=== PATIENT | female | born 1945 | race Caucasian/White ===

== ENCOUNTER 2017-04-12 18:56 | Inpatient (IN) | payer OTHER, MEDICAID ==
[~2017-04-12] VITALS: Ht 142.2 cm; Wt 46.7 kg
[2017-04-12 21:29] LABS: PLATELET COUNT 217 x10^3mcL (130-400)
[2017-04-12 21:40] LABS: CALCIUM 8.4 mg/dL (8.5-10.1); CARBON DIOXIDE 25.1 mmol/L (21-32); CHLORIDE SERUM 105 mmol/L (98-107); CREATININE SERUM 1.4 mg/dL (0.6-1.0); GLUCOSE SERUM 150 mg/dL (74-106); SODIUM SERUM 139 mmol/L (136-145)
[2017-04-12 21:41] LABS: RED CELL DISTRIBUTION WIDTH 19.3 % (11.5-14.5)
[2017-04-12 21:52] LABS: ALKALINE PHOSPHATASE 78 U/L (46-116); ALT/SGPT 19 U/L (14-59); AST/SGOT 17 U/L (15-37); BILIRUBIN TOTAL 0.5 mg/dL (0.20-1.00); TOTAL PROTEIN, SERUM 7.3 g/dL (6.4-8.2)
[2017-04-12 21:56] LABS: ALBUMIN 2.3 g/dL (3.4-5.0)
[2017-04-12 22:05] LABS: CK-MB < 0.5 ng/mL (0-3.6); CREATINE KINASE 17 U/L (26-192)
[2017-04-12 22:12] LABS: rbc morphology (normal/abnorm) ABNORMAL (NORMAL)
[2017-04-12 22:15] LABS: BAND NEUTROPHIL 0 % (0-10); BASOPHIL 0 % (0-2); MONOCYTE 5 % (0-7); PLATELET MORPHOLOGY PLATELETS NORMAL; SEGMENTED NEUTROPHILS 91 % (37-75)
[2017-04-12] MEDS ORDERED: CELEBREX200 MG PO (22:55)
[2017-04-12] MEDS ORDERED: LIPI10 PO (22:55)
[2017-04-12] MEDS ORDERED: ARICEPT5 MG PO (22:56)
[2017-04-12] MEDS ORDERED: ESCITALOPRAM10 M1 PO (22:56)
[2017-04-12] MEDS ORDERED: ESTRACE1 MG PO (22:58)
[2017-04-12] MEDS ORDERED: SYNTHROID0.112 MG PO (22:58)
[2017-04-12] MEDS ORDERED: MEDROXYPROGEST2.5 MG PO (22:59)
[2017-04-12] MEDS ORDERED: METAMUCIL POWD538 GM PO (23:00)
[2017-04-12] MEDS ORDERED: GOOD SENSE OMEP20 MG PO (23:00)
[2017-04-12] MEDS ORDERED: OYSCO 500-VIT1 EACH PO (23:01)
[2017-04-12] MEDS ORDERED: NEUTROGENA T TP (23:01)
[2017-04-12] MEDS ORDERED: [UNRECOGNIZED DRUG - OTHER] TP (23:01)
[2017-04-12] MEDS ORDERED: THERA M PLUS T1 EACH PO (23:02)
[2017-04-12] MEDS ORDERED: INTRINSI B12-F1 EACH PO (23:03)
[2017-04-12] MEDS ORDERED: COUGH DM30 MG/5 ML PO (23:04)
[2017-04-12] MEDS ORDERED: MEGL PO (23:05)
[2017-04-12] MEDS ORDERED: MUCINEX600 MG PO (23:05)
[2017-04-12] MEDS ORDERED: APAP500 MG PO (23:06)
[2017-04-12] MEDS ORDERED: MOM PO (23:08)
[2017-04-12] MEDS ORDERED: SUNSCREEN SPF8120 ML TP (23:08)
[2017-04-12] MEDS ORDERED: EUCERIN CALM I200 ML TP (23:09)
[2017-04-12] MEDS ORDERED: [UNRECOGNIZED DRUG - OTHER] (23:09)
[2017-04-12 23:10] LABS: UA SPECIFIC GRAVITY >=1.030 (1.005-1.035); microscopic required? YES; urine erythrocyte 1+ (NEGATIVE)
[2017-04-12] MEDS ORDERED: MAXITROL1 OIN OD (23:10)
[2017-04-12] MEDS ORDERED: OCUSOFT LID SC1 EACH TP (23:11)
[2017-04-13] VITALS (12 sets, daily range): BP systolic 80–123; BP diastolic 42–85; Ht 142.2 cm; Wt 46.7 kg
[2017-04-13 00:54] LABS: T3 TOTAL 0.33 ng/mL
[2017-04-13 01:05] LABS: CHOLESTEROL/HDL RATIO 2.4
[2017-04-13 01:11] LABS: FREE T4 1.23 ng/dL (0.76-1.46); FREE THYROXINE INDEX 2.3 ug/dL (1.4-4.5); T4(THYROXINE) 5.6 ug/dL (4.7-13.3)
[2017-04-13 06:26] LABS: PLATELET COUNT 187 x10^3mcL (130-400)
[2017-04-13 06:33] LABS: CALCIUM 7.4 mg/dL (8.5-10.1); CHLORIDE SERUM 112 mmol/L (98-107); CREATININE SERUM 1.2 mg/dL (0.6-1.0); GLUCOSE SERUM 100 mg/dL (74-106); MAGNESIUM 1.8 mg/dL (1.8-2.4); PHOSPHOROUS 3.1 mg/dL (2.5-4.9); POTASSIUM SERUM 4.6 mmol/L (3.5-5.1); SODIUM SERUM 145 mmol/L (136-145)
[2017-04-13 07:11] LABS: RED CELL DISTRIBUTION WIDTH 19.3 % (11.5-14.5)
[2017-04-13 11:42] LABS: ATYPICAL LYMPH 1 %; BAND NEUTROPHIL 26 % (0-10); BASOPHIL 0 % (0-2); MONOCYTE 3 % (0-7); SEGMENTED NEUTROPHILS 65 % (37-75)
[2017-04-13 11:45] LABS: PLATELET MORPHOLOGY LARGE PLATELET SEEN; rbc morphology (normal/abnorm) ABNORMAL (NORMAL)
[2017-04-14 05:42] VITALS: BP 96/66
[2017-04-14 06:16] LABS: BASOPHIL % 0.3 % (0-2); PLATELET COUNT 201 x10^3mcL (130-400)
[2017-04-14 06:31] LABS: CALCIUM 8.3 mg/dL (8.5-10.1); CARBON DIOXIDE 27.8 mmol/L (21-32); CHLORIDE SERUM 111 mmol/L (98-107); GLUCOSE SERUM 76 mg/dL (74-106); PHOSPHOROUS 2.8 mg/dL (2.5-4.9); POTASSIUM SERUM 4.2 mmol/L (3.5-5.1); SODIUM SERUM 145 mmol/L (136-145)
[2017-04-14 06:58] LABS: RED CELL DISTRIBUTION WIDTH 19.6 % (11.5-14.5)
[2017-04-14 10:22] VITALS: BP 105/72
[2017-04-14 14:00] VITALS: BP 111/62
[2017-04-14 17:57] VITALS: BP 116/54
[2017-04-14 22:48] VITALS: BP 104/61
[2017-04-15 05:46] VITALS: BP 108/65
[2017-04-15 05:58] LABS: BASOPHIL % 0.4 % (0-2); PLATELET COUNT 216 x10^3mcL (130-400)
[2017-04-15 06:17] LABS: CALCIUM 8.3 mg/dL (8.5-10.1); CARBON DIOXIDE 27.3 mmol/L (21-32); CHLORIDE SERUM 107 mmol/L (98-107); CREATININE SERUM 1.2 mg/dL (0.6-1.0); GLUCOSE SERUM 78 mg/dL (74-106); PHOSPHOROUS 3.7 mg/dL (2.5-4.9); POTASSIUM SERUM 4.6 mmol/L (3.5-5.1); SODIUM SERUM 142 mmol/L (136-145)
[2017-04-15 07:22] LABS: RED CELL DISTRIBUTION WIDTH 18.9 % (11.5-14.5)
[2017-04-15 08:54] VITALS: BP 119/56
[2017-04-15 13:42] VITALS: BP 119/63
[2017-04-15 18:00] VITALS: BP 109/56
[2017-04-15 20:19] VITALS: BP 110/72
[2017-04-16 04:22] VITALS: BP 107/52
[2017-04-16 06:17] LABS: CALCIUM 8.8 mg/dL (8.5-10.1); CARBON DIOXIDE 32.9 mmol/L (21-32); CHLORIDE SERUM 102 mmol/L (98-107); CREATININE SERUM 1.5 mg/dL (0.6-1.0); GLUCOSE SERUM 81 mg/dL (74-106); MAGNESIUM 2.2 mg/dL (1.8-2.4); PHOSPHOROUS 4.2 mg/dL (2.5-4.9); POTASSIUM SERUM 5.2 mmol/L (3.5-5.1); SODIUM SERUM 142 mmol/L (136-145)
[2017-04-16 06:52] LABS: BASOPHIL % 0.3 % (0-2); PLATELET COUNT 266 x10^3mcL (130-400); RED CELL DISTRIBUTION WIDTH 18.6 % (11.5-14.5)
[2017-04-16 09:07] VITALS: BP 106/77
[2017-04-17 05:17] VITALS: BP 139/97
[2017-04-17 06:02] LABS: PLATELET COUNT 272 x10^3mcL (130-400)
[2017-04-17 06:18] LABS: CALCIUM 8.7 mg/dL (8.5-10.1); CARBON DIOXIDE 27.2 mmol/L (21-32); CHLORIDE SERUM 106 mmol/L (98-107); CREATININE SERUM 1.4 mg/dL (0.6-1.0); GLUCOSE SERUM 131 mg/dL (74-106); MAGNESIUM 2.3 mg/dL (1.8-2.4); PHOSPHOROUS 4.1 mg/dL (2.5-4.9); SODIUM SERUM 141 mmol/L (136-145)
[2017-04-17 06:20] LABS: POTASSIUM SERUM 5.7 mmol/L (3.5-5.1)
[2017-04-17 06:52] LABS: BASOPHIL % 0 % (0-2); RED CELL DISTRIBUTION WIDTH 19.4 % (11.5-14.5)
[2017-04-17 08:00] VITALS: BP 131/86
[2017-04-17 09:08] VITALS: BP 119/66
[2017-04-17] MEDS ORDERED: IPRATROPIUM BROM3 M2 HHN (11:21)
[2017-04-17] MEDS ORDERED: LEVAQUIN750 MG PO (11:33)
[2017-04-17] MEDS ORDERED: LAC PO (11:34)
[2017-04-17] MEDS ORDERED: CLEOCIN HCL300 MG PO (11:34)
[2017-04-17 11:51] VITALS: BP 131/86
[2017-04-17 13:45] LABS: CALCIUM 8.6 mg/dL (8.5-10.1); CARBON DIOXIDE 24.8 mmol/L (21-32); CHLORIDE SERUM 107 mmol/L (98-107); CREATININE SERUM 1.4 mg/dL (0.6-1.0); GLUCOSE SERUM 195 mg/dL (74-106); POTASSIUM SERUM 4.2 mmol/L (3.5-5.1); SODIUM SERUM 142 mmol/L (136-145)
[2017-04-17 14:09] VITALS: BP 138/78
== END 2017-04-17 14:20 | DRG 177 ==
LOC: ED 18:56 → DU 22:37
PROVIDERS: Emergency Medicine; Family Medicine; ADMIT Family Medicine
DX: J69.0 Pneumonitis due to inhalation of food and vomit (principal); J96.01 Acute respiratory failure with hypoxia; E43 Unspecified severe protein-calorie malnutrition; N17.0 Acute kidney failure with tubular necrosis; F72 Severe intellectual disabilities; N39.0 Urinary tract infection, site not specified; R31.9 Hematuria, unspecified; K21.9 Gastro-esophageal reflux disease without esophagitis; M19.90 Unspecified osteoarthritis, unspecified site; J30.9 Allergic rhinitis, unspecified; E78.00 Pure hypercholesterolemia, unspecified; E03.9 Hypothyroidism, unspecified; F34.1 Dysthymic disorder; F41.8 Other specified anxiety disorders; Q90.9 Down syndrome, unspecified; G30.9 Alzheimer's disease, unspecified; F02.80 Dementia in other diseases classified elsewhere, unspecified severity, without behavioral disturbance, psychotic disturbance, mood disturbance, and anxiety; Z68.23 Body mass index [BMI] 23.0-23.9, adult
CPT/HCPCS: 36600; 83880; 84439; J1644; J1940; J2060; J2270; J2543; J2920; J7030; J7040; J7620; J7626; Q0092

== ENCOUNTER 2017-11-16 08:39 | Inpatient (IN) | payer OTHER, MEDICAID ==
[~2017-11-16] VITALS: Ht 142.2 cm; Wt 60.3 kg
[~2017-11-16 08:39] MED LIST: APAP500 MG PO; ARICEPT5 MG PO; CELEBREX200 MG PO; CLEOCIN HCL300 MG PO; COUGH DM30 MG/5 ML PO; ESCITALOPRAM10 M1 PO; ESTRACE1 MG PO; EUCERIN CALM I200 ML TP; GOOD SENSE OMEP20 MG PO; INTRINSI B12-F1 EACH PO; IPRATROPIUM BROM3 M2 HHN; LAC PO; LEVAQUIN750 MG PO; LIPI10 PO; MAXITROL1 OIN OD; MEDROXYPROGEST2.5 MG PO; MEGL PO; METAMUCIL POWD538 GM PO; MOM PO; MUCINEX600 MG PO; NEUTROGENA T TP; OCUSOFT LID SC1 EACH TP; OYSCO 500-VIT1 EACH PO; SUNSCREEN SPF8120 ML TP; SYNTHROID0.112 MG PO; THERA M PLUS T1 EACH PO; [UNRECOGNIZED DRUG - OTHER]; [UNRECOGNIZED DRUG - OTHER] TP
[2017-11-16 10:16] LABS: CALCIUM 8.4 mg/dL (8.5-10.1); CARBON DIOXIDE 30.1 mmol/L (21-32); CHLORIDE SERUM 103 mmol/L (98-107); CREATININE SERUM 1.2 mg/dL (0.6-1.0); GLUCOSE SERUM 110 mg/dL (74-106); POTASSIUM SERUM 4.3 mmol/L (3.5-5.1); SODIUM SERUM 141 mmol/L (136-145)
[2017-11-16 10:17] LABS: BASOPHIL % 0.2 % (0-2); PLATELET COUNT 225 x10^3mcL (130-400)
[2017-11-16] MEDS ORDERED: ARICEPT10 MG PO (10:20)
[2017-11-16 10:21] LABS: ALKALINE PHOSPHATASE 93 U/L (46-116); ALT/SGPT 31 U/L (14-59); AST/SGOT 40 U/L (15-37); BILIRUBIN TOTAL 0.2 mg/dL (0.20-1.00); TOTAL PROTEIN, SERUM 7.6 g/dL (6.4-8.2)
[2017-11-16] MEDS ORDERED: LEVOTHYROXINE0.1 M2 PO (10:22)
[2017-11-16 10:23] LABS: ALBUMIN 2.8 g/dL (3.4-5.0)
[2017-11-16] MEDS ORDERED: METAMUCIL660 GM PO (10:26)
[2017-11-16 10:28] LABS: RED CELL DISTRIBUTION WIDTH 15.1 % (11.5-14.5)
[2017-11-16] MEDS ORDERED: REM15 PO (10:43)
[2017-11-16 10:44] LABS: CHOLESTEROL/HDL RATIO 3.2; PHOSPHOROUS 3.7 mg/dL (2.5-4.9)
[2017-11-16] MEDS ORDERED: NEUTROGENA T TOP (10:46)
[2017-11-16] MEDS ORDERED: [UNRECOGNIZED DRUG - OTHER] TOP (10:46)
[2017-11-16] MEDS ORDERED: VITAMIN B121000 MCG PO (10:47)
[2017-11-16] MEDS ORDERED: IPRATROPIUM BROM3 M2 INH (10:49)
[2017-11-16 10:52] LABS: T3 TOTAL 0.65 ng/mL
[2017-11-16 11:04] LABS: FREE T4 1.4 ng/dL (0.76-1.46); FREE THYROXINE INDEX 3.2 ug/dL (1.4-4.5); T4(THYROXINE) 7.7 ug/dL (4.7-13.3)
[2017-11-16 12:16] VITALS: BP 128/70
[2017-11-16 12:34] VITALS: BP 131/73
[2017-11-16 16:36] VITALS: BP 147/57
[2017-11-16 21:43] VITALS: BP 115/76
[2017-11-17 06:06] VITALS: BP 110/56
[2017-11-17 06:23] LABS: CALCIUM 8.4 mg/dL (8.5-10.1); CARBON DIOXIDE 28.3 mmol/L (21-32); CHLORIDE SERUM 105 mmol/L (98-107); CREATININE SERUM 1.1 mg/dL (0.6-1.0); GLUCOSE SERUM 150 mg/dL (74-106); POTASSIUM SERUM 4.7 mmol/L (3.5-5.1); SODIUM SERUM 141 mmol/L (136-145)
[2017-11-17 06:38] LABS: PLATELET COUNT 216 x10^3mcL (130-400)
[2017-11-17 06:49] LABS: RED CELL DISTRIBUTION WIDTH 15.1 % (11.5-14.5)
[2017-11-17 09:30] VITALS: BP 126/87
[2017-11-17 11:52] LABS: BASOPHIL 0 % (0-2); MONOCYTE 4 % (0-7)
[2017-11-17 11:53] LABS: BAND NEUTROPHIL 20 % (0-10); SEGMENTED NEUTROPHILS 69 % (37-75)
[2017-11-17 11:55] LABS: PLATELET MORPHOLOGY PLATELETS NORMAL
[2017-11-17 11:56] LABS: rbc morphology (normal/abnorm) ABNORMAL (NORMAL)
[2017-11-17 11:57] LABS: target cell (codocyte) 1+
[2017-11-17 14:30] VITALS: BP 124/76; BP 126/87
[2017-11-17 17:45] VITALS: BP 130/81
[2017-11-17 17:48] VITALS: BP 116/48
[2017-11-17 21:37] VITALS: BP 133/89
[2017-11-18 06:12] VITALS: BP 136/79
[2017-11-18 06:47] LABS: PLATELET COUNT 224 x10^3mcL (130-400)
[2017-11-18 07:05] LABS: CALCIUM 8.5 mg/dL (8.5-10.1); CARBON DIOXIDE 34.7 mmol/L (21-32); CHLORIDE SERUM 106 mmol/L (98-107); CREATININE SERUM 1.4 mg/dL (0.6-1.0); GLUCOSE SERUM 132 mg/dL (74-106); MAGNESIUM 2.2 mg/dL (1.8-2.4); PHOSPHOROUS 4.5 mg/dL (2.5-4.9); POTASSIUM SERUM 4.7 mmol/L (3.5-5.1); SODIUM SERUM 147 mmol/L (136-145)
[2017-11-18 07:30] LABS: RED CELL DISTRIBUTION WIDTH 15.5 % (11.5-14.5)
[2017-11-18 10:30] VITALS: BP 135/65
[2017-11-18 11:12] LABS: BAND NEUTROPHIL 21 % (0-10); BASOPHIL 0 % (0-2); MONOCYTE 3 % (0-7); SEGMENTED NEUTROPHILS 71 % (37-75)
[2017-11-18 11:14] LABS: rbc morphology (normal/abnorm) ABNORMAL (NORMAL); target cell (codocyte) 1+; tear drop cell (dacryocyte) 1+
[2017-11-18 13:30] VITALS: BP 135/78
[2017-11-18 17:00] VITALS: BP 114/66
[2017-11-18 21:24] VITALS: BP 131/97
[2017-11-18 22:04] VITALS: BP 130/78
[2017-11-19 05:15] VITALS: BP 128/75
[2017-11-19 09:28] VITALS: BP 123/83
[2017-11-19 09:40] LABS: BASOPHIL % 0.1 % (0-2); PLATELET COUNT 210 x10^3mcL (130-400)
[2017-11-19 09:41] LABS: RED CELL DISTRIBUTION WIDTH 15.4 % (11.5-14.5)
[2017-11-19 10:09] LABS: CALCIUM 8.7 mg/dL (8.5-10.1); CARBON DIOXIDE 34.9 mmol/L (21-32); CHLORIDE SERUM 103 mmol/L (98-107); CREATININE SERUM 1.2 mg/dL (0.6-1.0); GLUCOSE SERUM 146 mg/dL (74-106); MAGNESIUM 2.5 mg/dL (1.8-2.4); PHOSPHOROUS 3.2 mg/dL (2.5-4.9); POTASSIUM SERUM 4.2 mmol/L (3.5-5.1); SODIUM SERUM 144 mmol/L (136-145)
[2017-11-19 13:52] VITALS: BP 111/63
[2017-11-19 16:35] VITALS: BP 134/79
[2017-11-19 17:25] VITALS: BP 138/87
[2017-11-19 22:06] VITALS: BP 132/71
[2017-11-20 05:00] VITALS: BP 136/83
[2017-11-20 07:30] LABS: CALCIUM 8.5 mg/dL (8.5-10.1); CARBON DIOXIDE 34.4 mmol/L (21-32); CHLORIDE SERUM 105 mmol/L (98-107); CREATININE SERUM 0.9 mg/dL (0.6-1.0); GLUCOSE SERUM 155 mg/dL (74-106); MAGNESIUM 2.5 mg/dL (1.8-2.4); PHOSPHOROUS 3.1 mg/dL (2.5-4.9); POTASSIUM SERUM 4.7 mmol/L (3.5-5.1); SODIUM SERUM 145 mmol/L (136-145)
[2017-11-20 07:31] LABS: PLATELET COUNT 219 x10^3mcL (130-400)
[2017-11-20 07:50] LABS: RED CELL DISTRIBUTION WIDTH 15.2 % (11.5-14.5)
[2017-11-20 08:35] VITALS: BP 138/81
[2017-11-20 10:04] LABS: BAND NEUTROPHIL 15 % (0-10); BASOPHIL 0 % (0-2); MONOCYTE 4 % (0-7); SEGMENTED NEUTROPHILS 75 % (37-75)
[2017-11-20 10:05] LABS: rbc morphology (normal/abnorm) ABNORMAL (NORMAL); target cell (codocyte) 1+; tear drop cell (dacryocyte) 1+
[2017-11-20 11:31] VITALS: Ht 142.2 cm; Wt 60.3 kg
[2017-11-20 12:30] VITALS: BP 154/82
[2017-11-20 18:10] VITALS: BP 124/80
[2017-11-20 20:30] VITALS: BP 126/86
[2017-11-21 04:29] VITALS: BP 119/82
[2017-11-21 07:08] LABS: PLATELET COUNT 201 x10^3mcL (130-400)
[2017-11-21 07:20] LABS: BASOPHIL % 0 % (0-2); RED CELL DISTRIBUTION WIDTH 15.1 % (11.5-14.5)
[2017-11-21 07:22] LABS: rbc morphology (normal/abnorm) ABNORMAL (NORMAL); target cell (codocyte) 1+
[2017-11-21 07:23] LABS: tear drop cell (dacryocyte) 1+
[2017-11-21 07:55] LABS: CALCIUM 8.7 mg/dL (8.5-10.1); CARBON DIOXIDE 31.5 mmol/L (21-32); CHLORIDE SERUM 105 mmol/L (98-107); CREATININE SERUM 0.8 mg/dL (0.6-1.0); GLUCOSE SERUM 139 mg/dL (74-106); MAGNESIUM 2.6 mg/dL (1.8-2.4); PHOSPHOROUS 3.8 mg/dL (2.5-4.9); POTASSIUM SERUM 4.7 mmol/L (3.5-5.1); SODIUM SERUM 142 mmol/L (136-145)
[2017-11-21 09:59] VITALS: BP 155/107
[2017-11-21 13:55] VITALS: BP 139/84
[2017-11-21 14:00] VITALS: BP 139/84
== END 2017-11-21 16:12 | DRG 177 ==
LOC: ED 08:39 → DU 09:25
PROVIDERS: Emergency Medicine Emergency Medical Services; Family Medicine; Family Medicine Sports Medicine
DX: J69.0 Pneumonitis due to inhalation of food and vomit (principal); E43 Unspecified severe protein-calorie malnutrition; J96.00 Acute respiratory failure, unspecified whether with hypoxia or hypercapnia; J45.901 Unspecified asthma with (acute) exacerbation; F72 Severe intellectual disabilities; Q90.9 Down syndrome, unspecified; K21.9 Gastro-esophageal reflux disease without esophagitis; E03.9 Hypothyroidism, unspecified; M19.90 Unspecified osteoarthritis, unspecified site; R74.0 Nonspecific elevation of levels of transaminase and lactic acid dehydrogenase [LDH]; F03.90 Unspecified dementia, unspecified severity, without behavioral disturbance, psychotic disturbance, mood disturbance, and anxiety; Z68.28 Body mass index [BMI] 28.0-28.9, adult; Z66 Do not resuscitate
CPT/HCPCS: 36600; 83880; 84439; 87804; J0171; J1940; J1956; J2543; J2920; J2930; J3475; J3490; J7030; J7613; J7620; J7644; Q0092

== ENCOUNTER 2018-01-03 19:54 | Inpatient (IN) | payer OTHER ==
[~2018-01-03] VITALS: Ht 149.9 cm; Wt 63.0 kg
[~2018-01-03 19:54] MED LIST changes: +ARICEPT10 MG PO; +IPRATROPIUM BROM3 M2 INH; +LEVOTHYROXINE0.1 M2 PO; +METAMUCIL660 GM PO; +NEUTROGENA T TOP; +REM15 PO; +VITAMIN B121000 MCG PO; +[UNRECOGNIZED DRUG - OTHER] TOP
[2018-01-03 19:58] VITALS: Ht 149.9 cm; Wt 63.0 kg
[2018-01-03 21:44] VITALS: BP 76/37
[2018-01-03 21:50] LABS: BASOPHIL % 0 % (0-2); PLATELET COUNT 55 x10^3mcL (130-400); RED CELL DISTRIBUTION WIDTH 16.8 % (11.5-14.5)
[2018-01-03 21:52] LABS: CARBON DIOXIDE 10.5 mmol/L (21-32); CHLORIDE SERUM 123 mmol/L (98-107); CREATININE SERUM 1.3 mg/dL (0.6-1.0); GLUCOSE SERUM 82 mg/dL (74-106); POTASSIUM SERUM 3.2 mmol/L (3.5-5.1); SODIUM SERUM 149 mmol/L (136-145)
[2018-01-03 22:31] LABS: TOTAL PROTEIN, SERUM 4.5 g/dL (6.4-8.2)
[2018-01-03 22:32] LABS: ALBUMIN 1.6 g/dL (3.4-5.0); ALKALINE PHOSPHATASE 80 U/L (46-116); ALT/SGPT 56 U/L (14-59); AST/SGOT 104 U/L (15-37); BILIRUBIN TOTAL 0.2 mg/dL (0.20-1.00); CALCIUM 7.1 mg/dL (8.5-10.1)
[2018-01-03 22:44] LABS: microscopic required? YES; urine erythrocyte 3+ (NEGATIVE)
[2018-01-03 22:44] LABS: CHOLESTEROL 56 mg/dL (<200); HDL CHOLESTEROL 24 mg/dL (40-60)
[2018-01-03 23:54] VITALS: BP 75/50
[2018-01-04] VITALS (7 sets, daily range): BP systolic 76–115; BP diastolic 52–61
[2018-01-04 03:11] LABS: MAGNESIUM 1.8 mg/dL (1.8-2.4); PHOSPHOROUS 6.7 mg/dL (2.5-4.9)
[2018-01-04 03:19] LABS: T3 TOTAL 0.2 ng/mL
[2018-01-04 04:05] LABS: CHOLESTEROL/HDL RATIO 2.1
[2018-01-04 04:06] LABS: FREE THYROXINE INDEX 1.5 ug/dL (1.4-4.5); IRON 24 ug/dL (50-170); T4(THYROXINE) 3.5 ug/dL (4.7-13.3); TOTAL IRON BINDING CAPACITY 139 ug/dL (250-450)
[2018-01-04 05:38] LABS: RED BLOOD CELLS 3.61 M/mm3 (4.10-5.10)
[2018-01-04 05:40] LABS: CALCIUM 7.5 mg/dL (8.5-10.1); CARBON DIOXIDE 17.9 mmol/L (21-32); CHLORIDE SERUM 109 mmol/L (98-107); CREATININE SERUM 2.2 mg/dL (0.6-1.0); GLUCOSE SERUM 291 mg/dL (74-106); MAGNESIUM 1.8 mg/dL (1.8-2.4); PHOSPHOROUS 5.7 mg/dL (2.5-4.9); PLATELET COUNT 81 x10^3mcL (130-400); POTASSIUM SERUM 5.5 mmol/L (3.5-5.1); RED CELL DISTRIBUTION WIDTH 17.6 % (11.5-14.5); SODIUM SERUM 142 mmol/L (136-145)
[2018-01-04 11:16] LABS: BAND NEUTROPHIL 37 % (0-10); BASOPHIL 0 % (0-2); MONOCYTE 3 % (0-7); SEGMENTED NEUTROPHILS 58 % (37-75)
[2018-01-04 11:17] LABS: PLATELET MORPHOLOGY PLATELETS DECREASED; rbc morphology (normal/abnorm) ABNORMAL (NORMAL)
== END 2018-01-04 10:54 | disposition expired | DRG 871 ==
LOC: ED 19:54 → IC 23:59
PROVIDERS: Emergency Medicine; Family Medicine
PROC: 5A1935Z Respiratory Ventilation, Less than 24 Consecutive Hours (ICD-10-PCS; 2018-01-03)
PROC: 0BH17EZ Insertion of Endotracheal Airway into Trachea, Via Natural or Artificial Opening (ICD-10-PCS; principal; 2018-01-04)
PROC: 02HV33Z Insertion of Infusion Device into Superior Vena Cava, Percutaneous Approach (ICD-10-PCS; 2018-01-04)
PROC: B548ZZA Ultrasonography of Superior Vena Cava, Guidance (ICD-10-PCS; 2018-01-04)
DX: A41.9 Sepsis, unspecified organism (principal); J69.0 Pneumonitis due to inhalation of food and vomit; R65.21 Severe sepsis with septic shock; J96.00 Acute respiratory failure, unspecified whether with hypoxia or hypercapnia; N17.0 Acute kidney failure with tubular necrosis; E43 Unspecified severe protein-calorie malnutrition; E87.0 Hyperosmolality and hypernatremia; F72 Severe intellectual disabilities; G93.1 Anoxic brain damage, not elsewhere classified; F03.90 Unspecified dementia, unspecified severity, without behavioral disturbance, psychotic disturbance, mood disturbance, and anxiety; E78.00 Pure hypercholesterolemia, unspecified; R25.8 Other abnormal involuntary movements; D64.9 Anemia, unspecified; D69.6 Thrombocytopenia, unspecified; R31.9 Hematuria, unspecified; J10.1 Influenza due to other identified influenza virus with other respiratory manifestations; E83.39 Other disorders of phosphorus metabolism; F34.1 Dysthymic disorder; E03.9 Hypothyroidism, unspecified; M19.90 Unspecified osteoarthritis, unspecified site; I46.9 Cardiac arrest, cause unspecified; K21.9 Gastro-esophageal reflux disease without esophagitis; E87.6 Hypokalemia; Q90.9 Down syndrome, unspecified; Z68.34 Body mass index [BMI] 34.0-34.9, adult
CPT/HCPCS: 36556; 36600; 83880; 84439; 87804; A4628; J0132; J1642; J1956; J2060; J2270; J2370; J2543; J3480; J3490; J7030; J7040; J7613; J7620; Q0092